=== PATIENT | female | born 1965 ===

== ENCOUNTER 2017-04-17 07:04 | Day surgery (SDC) | payer OTHER ==
[2017-03-11 08:16] VITALS: BMI 27.4
[2017-04-17 08:12] VITALS: O2SAT 100
[2017-04-17] MEDS ORDERED: Lactated Ringer's 1,000 ML IV ONE (10:00)
[2017-04-17] MEDS ORDERED: Propofol 10 mg/ml Inj (20 ML) ONE ×2 (10:00→10:12)
--- NOTE | 2017-04-17 10:05 | CP.SDSHP ---
Same Day Surgery H & P - History Proposed Procedure: egd Pre-Op Diagnosis: epigastric pain and tenderness - Previous Medical/Surgical History Cardiac: Hypertension Endocrine/Metabolic: Thyroid Disease, Diabetes, Renal Disease Misc: Other (gerd, gastritis, DJD) Previous Surgical History: tubal ligastion. shoulder surgery. knee arthroscopy - Allergies Allergies: Allergies No Known Allergies Allergy (Verified 04/17/17 07:52) - Physical Exam Vital Signs: Vital Signs 04/17/17 07:56 Temperature 97.3 F L Pulse Rate 69 Respiratory 19 Rate Blood Pressure 118/63 O2 Sat by Pulse 100 Oximetry Mental Status: Alert & Oriented x3 Neuro: WNL Heart: WNL Lungs: WNL GI: WNL - Impression Impression: epigastric pain and tenderness Pt. Evaluated Today:Candidate for Anesthesia & Procedure: Yes - Date & Time Date: 04/17/17 Time: 10:05 Short Stay Discharge - Short Stay Discharge Admitting Diagnosis/Reason for Visit: EPIGASTRIC PAIN, EPIGASTRIC ABD, PERIUMBILICAL PA Disposition: HOME/ ROUTINE
[2017-04-17] MEDS ORDERED: Pantoprazole 40 mg EC Tab PO ONE (10:30)
[2017-04-17 11:51] VITALS: TEMP 99.1
[2017-04-17 11:59] VITALS: BP 122/75; PULSE 87; RESP 12
== END 2017-04-17 11:25 | disposition home or self-care (01) ==
LOC: C.ENDO 07:04
PROVIDERS: ATTEND Internal Medicine Gastroenterology
DX: K21.9 Gastro-esophageal reflux disease without esophagitis (principal); K29.70 Gastritis, unspecified, without bleeding
CPT/HCPCS: 43239; 82948; 88305; 88342; J2001; J2704; J7120